=== PATIENT | male | born 1970 | race Caucasian/White ===

== ENCOUNTER 2016-10-09 13:00 | Emergency (ER) | payer OTHER ==
[2016-10-09 13:06] VITALS: TEMP 97.7
--- NOTE | 2016-10-09 13:32 | CPEKG ---
Heart Rate: 74 RR Interval: 811 P-R Interval: 184 QRSD Interval: 88 QT Interval: 368 QTC Interval: 409 P Lipan: 50 QRS Lipan: 12 T Wave Lipan: 29 EKG Severity - NORMAL ECG - EKG Impression: SINUS RHYTHM Electronically Signed By: Rosales Looney 09-Oct-2016 14:15:15
[2016-10-09] MEDS ORDERED: LIDOCAINE 2% VISCOUS 15 ML UDCUP PO ONE (13:36)
[2016-10-09] MEDS ORDERED: NS 1,000 ML IV ONE (13:36)
[2016-10-09] MEDS ORDERED: HYOSCYAMINE SULFATE 0.125 MG TAB PO ONE (13:36)
[2016-10-09] MEDS ORDERED: MAG HYDROX/AL HYDROX/SIMETH 30 ML UDCUP PO ONE (13:36)
--- NOTE | 2016-10-09 14:14 | EDPHY ---
H & P Stated Complaint: Intermittent sharp L sided CP x 2-3 days HPI/ROS: CHIEF COMPLAINT: Chest Pain HISTORY OF PRESENT ILLNESS: Patient complains of 2 days history of chest pain. This is a left-sided chest pain. He was at rest when this started. Mild -to-moderate pain that varies from 2/10 to a 7/10. Currently not present at this time. No worse with exertion. No diaphoresis, nausea or vomiting. No shortness of breath. Some cough. No fever or chills. No abdominal pain. No lower extremity or upper extremity erythema edema or pain. No history of venous thrombolic event. He does not smoke or take testosterone. No recent travel, surgery or trauma. No hemoptysis. No hypertension, diabetes, dyslipidemia, coronary artery disease. Does have a history of chest pain with stress test performed 2012 that was reportedly normal. No other associated complaints or modifying factors. FAMILY HISTORY CARDIAC: Father with defibrillator placement. No history of [place] PRIOR CARDIAC WORKUP: 2013 stress test REVIEW OF SYSTEMS: Ten systems reviewed and are negative unless otherwise noted in the HPI EXAMINATION: General Appearance: Alert, no distress Head: normocephalic, atraumatic Eyes: Pupils equal and round, no conjunctival pallor or injection . EOMs intact. ENT, Mouth: Mucous membranes moist. uvula midline. No erythema or edema. Neck: Normal inspection, supple, non-tender Respiratory: Lungs are clear to auscultation . No wheezing or rhonchi or crackles. Cardiovascular: Regular rate and rhythm . No murmur. Pulses intact distally. Gastrointestinal: Abdomen is soft and nontender Neurological: A&O, nonfocal, normal gait . GCS 15. Strength symmetric in all limbs. Skin: Warm and dry, no rash . No petechiae purpura. Extremities: Nontender, no pedal edema . No evidence of DVT. Psychiatric: Mood and affect normal DIFFERENTIAL DIAGNOSES: Including but not limited to in no particular order: Acute Chest Pain, ACS, Stable Angina, Pneumonia, PE, duodenitis, gastritis, esophagitis, GERD MDM: 2:00 p.m. left-sided chest pain of 2 days duration. This has been intermittently present but never fully resolved. No exertional component. Vital signs stable. Laboratory studies and x-ray are pending at this time. EKG is unremarkable. 3:20 p.m. laboratory studies are negative. This includes a negative troponin, which is sensitive as he has had chest pain for 2 days. The D-dimer is also negative. Laboratory studies are all within normal limits. Vital signs remain clear. Chest x-ray is unremarkable. He has no exertional pain. No risk factors for coronary artery disease other than age 46. Additionally, GI cocktail that he was given completely resolved his pain. I do feel he is stable for discharge home as we have ruled him out with 2 days of chest pain. He will follow up with his established primary care physician to discuss further workup. He is comfortable with this plan and discharged home in stable condition. EKG: Interpreted by Dr. Looney Sinus rhythm with no ischemia. SUPERVISION: Patient was evaluated in conjunction with the supervising physician. Please see their note for details. Source: Patient Exam Limitations: No limitations - Personal History Current Tetanus Diphtheria and Acellular Pertussis (TDAP): Yes - Medical/Surgical History Other PMH: neg per pt - Social History Smoking Status: Never smoked Constitutional: Initial Vital Signs Temperature (C) 97.7 F 10/09/16 13:02 Heart Rate 71 10/09/16 13:02 Respiratory Rate 18 10/09/16 13:02 Blood Pressure 134/86 H 10/09/16 13:02 O2 Sat (%) 98 10/09/16 13:02 O2 Delivery Mode Room Air Allergies/Adverse Reactions: No Known Allergies Allergy (Unverified 10/09/16 13:07) Home Medications: Medication Instructions Recorded NK [No Known Home Meds] 10/09/16 Medical Decision Making - Diagnostics Imaging Results: Imaging Impressions Chest X-Ray 10/09/16 13:46 Impression: Normal chest. - Data Points Laboratory Results: Laboratory Results 10/09/16 14:20 10/09/16 14:20 10/09/16 10/09/16 10/09/16 14:20 14:20 14:20 WBC 6.82 10^3/uL 10^3/uL (3.80-9.50) RBC 5.74 10^6/uL 10^6/uL (4.40-6.38) Hgb 14.7 g/dL g/dL (13.7-17.5) Hct 46.4 % % (40.0-51.0) MCV 80.8 fL L fL (81.5-99.8) MCH 25.6 pg L pg (27.9-34.1) MCHC 31.7 g/dL L g/dL (32.4-36.7) RDW 13.7 % % (11.5-15.2) Plt Count 276 10^3/uL 10^3/uL (150-400) MPV 10.3 fL fL (8.7-11.7) Neut % (Auto) 55.8 % % (39.3-74.2) Lymph % (Auto) 34.3 % % (15.0-45.0) Jay % (Auto) 7.6 % % (4.5-13.0) Eos % (Auto) 1.5 % % (0.6-7.6) Baso % (Auto) 0.4 % % (0.3-1.7) Nucleat RBC Rel Count 0.0 % % (0.0-0.2) Absolute Neuts (auto) 3.80 10^3/uL 10^3/uL (1.70-6.50) Absolute Lymphs (auto) 2.34 10^3/uL 10^3/uL (1.00-3.00) Absolute Monos (auto) 0.52 10^3/uL 10^3/uL (0.30-0.80) Absolute Eos (auto) 0.10 10^3/uL 10^3/uL (0.03-0.40) Absolute Basos (auto) 0.03 10^3/uL 10^3/uL (0.02-0.10) Absolute Nucleated RBC 0.00 10^3/uL 10^3/uL (0-0.01) Immature Gran % 0.4 % % (0.0-1.1) Immature Gran # 0.03 10^3/uL 10^3/uL (0.00-0.10) D-Dimer < 0.27 ug/mLFEU ug/mLFEU (0.00-0.50) Sodium 142 mEq/L mEq/L (134-144) Potassium 3.8 mEq/L mEq/L (3.5-5.2) Chloride 104 mEq/L mEq/L (97-110) Carbon Dioxide 27 mEq/l mEq/l (22-31) Anion Gap 11 mEq/L mEq/L (8-16) BUN 14 mg/dL mg/dL (7-23) Creatinine 0.8 mg/dL mg/dL (0.7-1.3) Estimated GFR > 60 Glucose 106 mg/dL H mg/dL (70-100) Calcium 9.7 mg/dL mg/dL (8.5-10.4) Total Bilirubin 1.2 mg/dL mg/dL (0.1-1.4) Conjugated Bilirubin 0.4 mg/dL mg/dL (0.0-0.5) Unconjugated Bilirubin 0.8 mg/dL mg/dL (0.0-1.1) AST 29 IU/L IU/L (17-59) ALT 32 IU/L IU/L (21-72) Alkaline Phosphatase 60 IU/L IU/L (38-126) Troponin I < 0.012 ng/mL ng/mL (0-0.034) Total Protein 7.7 g/dL g/dL (6.3-8.2) Albumin 4.6 g/dL g/dL (3.5-5.0) Lipase 289.0 IU/L IU/L (23-300) Medications Given: Discontinued Medications Al Hydroxide/Mg Hydroxide (Maalox Susp) 30 ml PO ONCE ONE Stop: 10/09/16 13:37 Last Admin: 10/09/16 13:52 Dose: 30 ml Hyoscyamine Sulfate (Levsin, Hyomax-Sl) 0.25 mg PO ONCE ONE Stop: 10/09/16 13:37 Last Admin: 10/09/16 13:51 Dose: 0.25 mg Sodium Chloride (Ns) 1,000 mls @ 0 mls/hr IV ONCE ONE PRN Reason: Wide Open Stop: 10/09/16 13:37 Last Admin: 10/09/16 14:28 Dose: 1,000 mls Lidocaine (Lidocaine 2% Viscous) 15 ml PO ONCE ONE Stop: 10/09/16 13:37 Last Admin: 10/09/16 13:52 Dose: 15 ml Departure - Departure Disposition: Home, Routine, Self-Care Clinical Impression: Chest pain Qualifiers: Chest pain type: unspecified Qualified Code(s): R07.9 - Chest pain, unspecified Condition: Good Instructions: Chest Pain (ED), Esophagitis (ED) Additional Instructions: Prilosec OTC as discussed. Contact primary care physician today or tomorrow for further follow-up. Return to ER for any changes in the pain, exertional pain, radiating pain, diaphoresis or shortness of breath Referrals: Ladan Pfeiffer, PAC [Primary Care Provider] - As per Instructions
[2016-10-09 14:33] LABS: % IMMATURE GRANULYOCYTES 0.4 % (0.0-1.1); ABSOLUTE IMMATURE GRANULOCYTES 0.03 10^3/uL (0.00-0.10); ADD DIFF? NO; ADD MORPH? NO; ADD SCAN? NO; ATYPICAL LYMPHOCYTE FLAG 10 (0-99); FRAGMENT RBC FLAG 0 (0-99); HEMATOCRIT 46.4 % (40.0-51.0); HEMOGLOBIN 14.7 g/dL (13.7-17.5); LEFT SHIFT FLG 10 (0-99); LIPEMIA HEMOLYSIS FLAG 80 (0-99); MEAN CELL HEMOGLOBIN 25.6 pg (27.9-34.1); MEAN CELL HEMOGLOBIN CONCENTR. 31.7 g/dL (32.4-36.7); MEAN CELL VOLUME 80.8 fL (81.5-99.8); MEAN PLATELET VOLUME 10.3 fL (8.7-11.7); PLATELET CLUMPS FLAG 0 (0-99); PLATELET COUNT 276 10^3/uL (150-400); RED BLOOD CELL COUNT 5.74 10^6/uL (4.40-6.38); RED CELL DISTRIBUTION WIDTH 13.7 % (11.5-15.2)
[2016-10-09 14:54] LABS: ALANINE AMINOTRANSFERASE 32 IU/L (21-72); ALBUMIN 4.6 g/dL (3.5-5.0); ALKALINE PHOSPHATASE 60 IU/L (38-126); ANION GAP 11 mEq/L (8-16); ASPARTATE AMINOTRANSFERASE 29 IU/L (17-59); BILIRUBIN,TOTAL 1.2 mg/dL (0.1-1.4); BILIRUBIN-CONJUGATED 0.4 mg/dL (0.0-0.5); BILIRUBIN-UNCONJUGATED 0.8 mg/dL (0.0-1.1); CALCIUM 9.7 mg/dL (8.5-10.4); CARBON DIOXIDE 27 mEq/l (22-31); CHLORIDE 104 mEq/L (97-110); CREATININE 0.8 mg/dL (0.7-1.3); GLOMERULAR FILTRATION RATE > 60; GLUCOSE 106 mg/dL (70-100); POTASSIUM 3.8 mEq/L (3.5-5.2); SODIUM 142 mEq/L (134-144); TOTAL PROTEIN 7.7 g/dL (6.3-8.2)
[2016-10-09 15:04] LABS: TROPONIN I < 0.012 ng/mL (0-0.034)
[2016-10-09 15:38] VITALS: BP 117/82; PULSE 69; RESP 20; O2SAT 92
== END 2016-10-09 15:38 | disposition home or self-care (01) ==
DX: R07.9 Chest pain, unspecified (principal)

== ENCOUNTER → 2017-04-24 | Outpatient (CLI) | payer OTHER | LOC: CIMAGING 12:51 | PROVIDERS: ATTEND Family Medicine | DX: E04.9 Nontoxic goiter, unspecified (principal); F45.8 Other somatoform disorders | CPT/HCPCS: 76536-PO ==